=== PATIENT | female | born 1990 | race Two or more races ===

== ENCOUNTER 2018-07-27 13:42 | Emergency (ER) | payer SELFPAY ==
[~2018-07-27] VITALS: Ht 157.5 cm; Wt 71.8 kg
[2018-07-27 14:03] LABS: BILIRUBIN,URINE NEGATIVE (NEG); CLARITY,URINE CLOUDY; COLOR,URINE YELLOW; NITRITE,URINE NEGATIVE (NEG); PH,URINE 7.5; PROTEIN,URINE NEGATIVE (NEG-TRACE); UROBILINOGEN,URINE 0.2 mg/dL (0.2 mg/dL)
[2018-07-27] MEDS ORDERED: KETOROLAC 30 MG/ML VIAL. IV ONE (14:15)
[2018-07-27 14:30] LABS: BACTERIA,URINE 0 /HPF (0-FEW); WBC,URINE 0 /HPF (0-4)
[2018-07-27 14:35] LABS: BASO # 0.1 x10^3/uL (0.0-0.2); BASO % 1 % (0-3); EOS # 0.2 x10^3/uL (0.0-0.7); EOS % 3 % (0-3); HEMATOCRIT 38.3 % (36.0-47.0); HEMOGLOBIN 13.6 g/dL (12.0-15.5); LYMPH # 3.4 x10^3/uL (1.0-4.8); LYMPH % 35 % (24-48); MEAN CORPUSCULAR HEMOGLOBIN 30 pg (25-35); MEAN CORPUSCULAR HGB CONC 36 g/dL (31-37); MEAN CORPUSCULAR VOLUME 86 fL (79-100); MONO # 0.7 x10^3/uL (0.0-1.1); MONO % 7 % (0-9); NEUT # 5.3 x10^3uL (1.8-7.7); NEUT % 55 % (31-73); PLATELET COUNT 340 x10^3/uL (140-400); RED BLOOD COUNT 4.47 x10^6/uL (3.50-5.40); RED CELL DISTRIBUTION WIDTH 13.2 % (11.5-14.5); WHITE BLOOD COUNT 9.7 x10^3/uL (4.0-11.0)
--- NOTE | 2018-07-27 14:42 | PHYS DOC ---
Past Medical History Past Medical History: Other Additional Past Medical Histor: LEFT OVARIAN CYSTS Alcohol Use: None Drug Use: None Adult General Chief Complaint Chief Complaint: PELVIC PAIN HPI HPI Patient is a 27-year-old female who presents to the emergency department for evaluation. The patient is , and Indonesian-speaking, and history was obtained via language line. The patient states that she has a history of irregular periods, and her last menstrual period was about 4 months ago. She states that last week she took a test at home which was negative. She states that this past Friday, she began experiencing lower pelvic pain, primarily in her left pelvic area. She has also had some intermittent vaginal spotting. She has not had any other vaginal discharge. She has not had any nausea, vomiting, diarrhea, or black or bloody stools. She has not had any generalized abdominal pain, with the pain being localized primarily to the left suprapubic area. There are no alleviating or exacerbating factors to her symptoms. Review of Systems Review of Systems Constitutional: Denies fever or chills [] Eyes: Denies change in visual acuity, redness, or eye pain [] HENT: Denies nasal congestion or sore throat [] Respiratory: Denies cough or shortness of breath [] Cardiovascular: The patient denies any shortness of breath, chest pain, palpitations, or orthopnea [] GI: Denies nausea, vomiting, bloody stools or diarrhea [] : Denies dysuria or hematuria, or vaginal discharge [] Musculoskeletal: Denies back pain or joint pain [] Integument: Denies rash or skin lesions [] Neurologic: Denies headache, focal weakness or sensory changes [] Endocrine: Denies polyuria or polydipsia [] All other systems were reviewed and found to be within normal limits, except as documented in this note. Current Medications Current Medications Current Medications Medications (Trade) Dose Ordered Sig/[facility] Start Time Stop Time Status Last Admin Dose Admin Ketorolac Tromethamine (Toradol 30mg Vial) 30 mg 1X ONCE 07/27/18 14:15 07/27/18 14:26 DC 07/27/18 14:29 30 MG Allergies Allergies Allergies Coded Allergies Type Severity Reaction Last Updated Verified No Known Drug Allergies 07/27/18 No Physical Exam Physical Exam PHYSICAL EXAM: CONSTITUTIONAL: Well developed, well nourished HEAD: normocephalic, atraumatic EENT: PERRL, EOMI. Conjunctivae normal color, sclerae non-icteric; moist mucous membranes. NECK: Supple, non-tender; no meningismus. LUNGS: Lungs CTA, breathing even and unlabored. Normal air movement. HEART: Regular rate and rhythm, no murmur CHEST: No deformity; non-tender ABDOMEN: The abdomen is soft, there is left suprapubic tenderness to palpation, without rebound or guarding. The remainder the abdomen is soft and non-tender, no masses or bruits. EXTREM: Normal ROM; no deformity, no calf tenderness. Normal pulses palpable in all extremities. There is no pedal edema. SKIN: No rash; no diaphoresis NEURO: Alert; normal speech and cognition; CN's grossly intact; strength grossly intact without focal deficit. BACK: No CVA TTP. PELVIC EXAM: Normal external genitalia. There is a small amount of dark blood present in the vaginal vault. The cervix appears abnormal, with a large fingerlike projection projecting anteriorly from the cervix, although there is no definite cervical motion tenderness. There is diffuse suprapubic and left adnexal tenderness to palpation without definite palpable mass. Exam was performed in the presence of the patient's nurse, Myranda. Current Patient Data Vital Signs Vital Signs Date Time Temp Pulse Resp B/P (MAP) Pulse Ox O2 Delivery O2 Flow Rate FiO2 07/27/18 13:44 98.7 98 12 132/80 (97) 100 Room Air 98.7 Lab Values Laboratory Tests Test 07/27/18 13:55 07/27/18 13:58 07/27/18 14:20 Urine Collection Type Unknown Urine Color Yellow Urine Clarity Cloudy Urine pH 7.5 Urine Specific [place] 1.015 Urine Protein Negative mg/dL (NEG-TRACE) Urine Glucose (UA) Negative mg/dL (NEG) Urine Ketones (Stick) Negative mg/dL (NEG) Urine Blood Large (NEG) Urine Nitrite Negative (NEG) Urine Bilirubin Negative (NEG) Urine Urobilinogen Dipstick 0.2 mg/dL (0.2 mg/dL) Urine Leukocyte Esterase Negative (NEG) Urine RBC 11-20 /HPF (0-2) Urine WBC 0 /HPF (0-4) Urine Bacteria 0 /HPF (0-FEW) POC Urine HCG, Qualitative Hcg negative (Negative) White Blood Count 9.7 x10^3/uL (4.0-11.0) Red Blood Count 4.47 x10^6/uL (3.50-5.40) Hemoglobin 13.6 g/dL (12.0-15.5) Hematocrit 38.3 % (36.0-47.0) Mean Corpuscular Volume 86 fL (79-100) Mean Corpuscular Hemoglobin 30 pg (25-35) Mean Corpuscular Hemoglobin Concent 36 g/dL (31-37) Red Cell Distribution Width 13.2 % (11.5-14.5) Platelet Count 340 x10^3/uL (140-400) Neutrophils (%) (Auto) 55 % (31-73) Lymphocytes (%) (Auto) 35 % (24-48) Monocytes (%) (Auto) 7 % (0-9) Eosinophils (%) (Auto) 3 % (0-3) Basophils (%) (Auto) 1 % (0-3) Neutrophils # (Auto) 5.3 x10^3uL (1.8-7.7) Lymphocytes # (Auto) 3.4 x10^3/uL (1.0-4.8) Monocytes # (Auto) 0.7 x10^3/uL (0.0-1.1) Eosinophils # (Auto) 0.2 x10^3/uL (0.0-0.7) Basophils # (Auto) 0.1 x10^3/uL (0.0-0.2) Sodium Level 141 mmol/L (136-145) Potassium Level 3.7 mmol/L (3.5-5.1) Chloride Level 103 mmol/L (98-107) Carbon Dioxide Level 30 mmol/L (21-32) Anion Gap 8 (6-14) Blood Urea Nitrogen 12 mg/dL (7-20) Creatinine 0.7 mg/dL (0.6-1.0) Estimated GFR (Cockcroft-Gault) 99.6 BUN/Creatinine Ratio 17 (6-20) Glucose Level 94 mg/dL (70-99) Calcium Level 9.0 mg/dL (8.5-10.1) Total Bilirubin 0.2 mg/dL (0.2-1.0) Aspartate Amino Transferase (AST) 21 U/L (15-37) Alanine Aminotransferase (ALT) 30 U/L (14-59) Alkaline Phosphatase 105 U/L (46-116) Total Protein 8.6 g/dL (6.4-8.2) H Albumin 3.7 g/dL (3.4-5.0) Albumin/Globulin Ratio 0.8 (1.0-1.7) L Lipase 104 U/L (73-393) Laboratory Tests 07/27/18 14:20 Laboratory Tests 07/27/18 14:20 Microbiology 07/27/18 Wet Prep - Final, Complete WET PREP Final YEAST NONE SEEN TRICHOMONAS NONE SEEN CLUE CELLS NONE SEEN WBCS OCCASIONAL RBCS MANY EKG EKG [] Radiology/Procedures Radiology/Procedures [PROCEDURE: PELVIS W/TV Pelvic ultrasound, 07/27/2018: HISTORY: Left lower quadrant pain, spotting, irregular menses Transabdominal and transvaginal scans were obtained. The uterus measures 12 x 5 x 4 cm. This intrauterine echo complex measures 5.5 mm no uterine mass is evident. The left ovary measures 3.6 x 1.7 x 1.7 cm. The right ovary measures 3.3 x 2.7 x 1.6 cm. Small follicular cysts are present in both ovaries. There is blood flow in both ovaries. No adnexal mass is evident. No free fluid is identified in the pelvis. IMPRESSION: No significant abnormality is detected.] Course & Med Decision Making Course & Med Decision Making Pertinent Labs and Imaging studies reviewed. (See chart for details) [3:10 PM: Pt condition remains stable. I discussed test results in detail with the patient, including the unknown etiology of her symptoms and the abnormal appearance of her cervix and the need for gynecology follow-up. I discussed this with the patient via the language line in Indonesian. I discussed return precautions in detail as well. I discussed use of NSAIDs for pain.] Dragon Disclaimer Dragon Disclaimer This electronic medical record was generated, in whole or in part, using a voice recognition dictation system. Departure Departure Impression: Primary Impression: Pelvic pain Disposition: 01 HOME, SELF-CARE Condition: STABLE Referrals: ОЛЬГА GUTIERREZ Jr, MD Patient Instructions: Pelvic Pain, Female GENNARO KERNS MD Jul 27, 2018 14:42
[2018-07-27 14:48] LABS: CREATININE 0.7 mg/dL (0.6-1.0); GFR 99.6; POTASSIUM 3.7 mmol/L (3.5-5.1)
--- NOTE | 2018-07-27 14:50 | RAD ---
Pelvic ultrasound, 07/27/2018: HISTORY: Left lower quadrant pain, spotting, irregular menses Transabdominal and transvaginal scans were obtained. The uterus measures 12 x 5 x 4 cm. This intrauterine echo complex measures 5.5 mm no uterine mass is evident. The left ovary measures 3.6 x 1.7 x 1.7 cm. The right ovary measures 3.3 x 2.7 x 1.6 cm. Small follicular cysts are present in both ovaries. There is blood flow in both ovaries. No adnexal mass is evident. No free fluid is identified in the pelvis. IMPRESSION: No significant abnormality is detected. Electronically signed by: Jean Marie Blackwood MD (07/27/2018 2:46 PM) [facility]
[2018-07-27 14:54] LABS: ALBUMIN 3.7 g/dL (3.4-5.0); ALBUMIN/GLOBULIN RATIO 0.8 (1.0-1.7); TOTAL BILIRUBIN 0.2 mg/dL (0.2-1.0); TOTAL PROTEIN 8.6 g/dL (6.4-8.2)
[2018-07-27 15:30] VITALS: BP 96/56
[2018-07-29 19:15] LABS: GC PROBE Negative (Negative)
== END 2018-07-27 15:50 | disposition home or self-care (01) ==
LOC: ER 13:42
DX: R10.2 Pelvic and perineal pain (principal); N92.6 Irregular menstruation, unspecified
CPT/HCPCS: 36415; 76830; 76856; 80053; 81001; 81025; 83690; 85025; 87491; 87591; 96374; 99284; J1885; Q0111